=== PATIENT | female | born 1985 | race African-American/Black ===

== ENCOUNTER 2017-10-17 09:47 | Emergency (ER) | payer SELFPAY ==
[~2017-10-17] VITALS: Ht 172.7 cm; Wt 85.0 kg
[2017-10-17 09:48] VITALS: BP 148/56; PULSE 70; RESP 16; TEMP 98.4; O2SAT 96
[2017-10-17 10:42] LABS: BACTERIA, URINE RARE /hpf; BILIRUBIN, URINE NEG (NEG); BLOOD, URINE MOD (NEG); GLUCOSE,URINE NEG (NEG); KETONE, URINE NEG (NEG); MUCUS URINE MANY /lpf (OCC); NITRITE,URINE NEG (NEG); SQUAMOUS EPITHELIAL CELL URINE 1 /hpf (0-5); URINE COLOR YELLOW (YELLW/STRAW); URINE LEUKOCYTE ESTERASE LARGE (NEG)
[2017-10-17] MEDS ORDERED: IBUP-232 PO (10:42)
[2017-10-17] MEDS ORDERED: PENI500T PO (10:42)
--- NOTE | 2017-10-17 10:42 | PD ---
HPI Chief Complaint: Oral / Dental Pain or Problem Time Seen by Provider: 10:28 Travel History International Travel<30 days: No Contact w/Intl Traveler<30days: No Traveled to known affect area: No History of Present Illness HPI 32-year-old female complains of right-sided facial pain and swelling and urinary frequency. Patient states that she has unit frequency for the past year. Patient denied dysuria. Patient denies abdominal pain or back pain. Patient states that she had dental pain recently however the pain is swelling on the right side the face started about 2 days ago. Patient states that the pain localized to the right side of the face. Patient denies any pain radiation. Patient denies any fever chills. Patient denies any problem with swallowing. PFSH Past Medical History Medical History: Denies Significant Hx ?: Not LMP: 10/08/17 Past Surgical History Section: Yes Social History Alcohol Use: No Tobacco Use: No Substance Use: No Allergies-Medications (Allergen,Severity, Reaction): Coded Allergies: No Known Allergies (Unverified , 10/17/17) Reported Meds & Prescriptions Reported Meds & Active Scripts Active Ibuprofen 600 Mg Tab 600 Mg PO TID Penicillin V Potassium 500 Mg Tab 500 Mg PO Q6H Review of Systems General / Constitutional: No: Fever Eyes: No: Visual changes HENT: No: Headaches Cardiovascular: No: Chest Pain or Discomfort Respiratory: No: Shortness of Breath Gastrointestinal: No: Abdominal Pain Genitourinary: Positive: Frequency, No: Dysuria Musculoskeletal: No: Pain Skin: No Rash Neurologic: No: Weakness Psychiatric: No: Depression Endocrine: No: Polydipsia Hematologic/Lymphatic: No: Easy Bruising Physical Exam Narrative GENERAL: Well-nourished, well-developed patient. SKIN: Focused skin assessment warm/dry. HEAD: Normocephalic. EYES: No scleral icterus. No injection or drainage. Patient has severe dental caries on the right upper gum area with mild soft tissue swelling in the right cheek and right gum area. NECK: Supple, trachea midline. No JVD or lymphadenopathy. CARDIOVASCULAR: Regular rate and rhythm without murmurs, gallops, or rubs. RESPIRATORY: Breath sounds equal bilaterally. No accessory muscle use. GASTROINTESTINAL: Abdomen soft, non-tender, nondistended. MUSCULOSKELETAL: No cyanosis, or edema. BACK: Nontender without obvious deformity. No CVA tenderness. Neurologic exam normal. Data Data Last Documented VS Vital Signs Date Time Temp Pulse Resp B/P (MAP) Pulse Ox O2 Delivery O2 Flow Rate FiO2 10/17/17 09:48 98.4 70 16 148/56 (86) 96 Orders Orders Urinalysis - C+S If Indicated (10/17/17 10:08) Ed Urine Pregnancytest Poc (10/17/17 10:08) Urine Culture (10/17/17 10:30) Labs Laboratory Tests Test 10/17/17 10:30 Urine Color YELLOW Urine Turbidity HAZY Urine pH 6.0 Urine Specific [place] 1.023 Urine Protein 30 mg/dL Urine Glucose (UA) NEG mg/dL Urine Ketones NEG mg/dL Urine Occult Blood MOD Urine Nitrite NEG Urine Bilirubin NEG Urine Urobilinogen 2.0 MG/DL Urine Leukocyte Esterase LARGE Urine RBC 26 /hpf Urine WBC 155 /hpf Urine Squamous Epithelial Cells 1 /hpf Urine Bacteria RARE /hpf Urine Mucus MANY /lpf Microscopic Urinalysis Comment CULTURE INDICATED MDM Medical Decision Making Medical Screen Exam Complete: Yes Emergency Medical Condition: Yes Differential Diagnosis Differential diagnosis including dental abscess, urinary frequency, hyperactive bladder, UTI. Narrative Course 32-year-old female with pain and swelling right upper gum and right side of face and urinary frequency. Diagnosis Primary Impression: Dental abscess Additional Impression: UTI (urinary tract infection) Qualified Codes: N30.00 - Acute cystitis without hematuria Patient Instructions: General Instructions Additional Instructions: Take medications as directed. Follow-up with a dentist and personal physician. Med/Other Pt SpecificInfo: Prescription(s) given Scripts Sulfamethoxazole-Trimethoprim (Bactrim DS) 800-160 Mg Tab 1 TAB PO BID for Infection, #14 TAB 0 Refills Prov: Kolton Ramírez MD 10/17/17 Ibuprofen (Ibuprofen) 600 Mg Tab 600 MG PO TID for Pain, #30 TAB 0 Refills Prov: Kolton Ramírez MD 10/17/17 Penicillin V Potassium (Penicillin V Potassium) 500 Mg Tab 500 MG PO Q6H for Infection, #40 TAB 0 Refills Prov: Kolton Ramírez MD 10/17/17 Disposition: 01 DISCHARGE HOME Condition: Stable Kolton Ramírez MD Oct 17, 2017 10:42
[2017-10-17] MEDS ORDERED: BACT800T5 PO (11:02)
== END 2017-10-17 11:17 | disposition home or self-care (01) ==
LOC: NEPD 09:47
DX: K04.7 Periapical abscess without sinus (principal); N39.0 Urinary tract infection, site not specified
CPT/HCPCS: 81001; 84703; 87086; 99284